=== PATIENT | male | born 1990 | race Caucasian/White ===

== ENCOUNTER 2017-07-25 10:07 | Emergency (ER) | payer BC, OTHER ==
[2017-07-25 10:15] VITALS: BP 150/89; PULSE 102; RESP 16; TEMP 98.6; O2SAT 96
[2017-07-25] MEDS ORDERED: OXYMETAZOLINE 30 ML NASAL SPRAY EACHNARE ONE (10:25)
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
== END 2017-07-25 10:46 | disposition home or self-care (01) ==
LOC: CED 10:07
DX: S09.92XA Unspecified injury of nose, initial encounter (principal); F17.200 Nicotine dependence, unspecified, uncomplicated; W22.8XXA Striking against or struck by other objects, initial encounter